=== PATIENT | male | born 1975 | race Caucasian/White ===

== ENCOUNTER 2022-03-23 10:48 | Emergency (ER) | payer MEDICAID, SELFPAY ==
--- NOTE | ~2022-03-23 | CT_ITS ---
EXAMINATION: CT ABDOMEN AND PELVIS WITHOUT CONTRAST CLINICAL INFORMATION: Patient complaining of diffuse abd pain with N/V x 10 days COMPARISON: Chest radiograph earlier today TECHNIQUE: Multidetector volumetric imaging was performed from the superior aspect of the liver through the pubic symphysis. Sagittal and coronal reformatted images were obtained on the technologist's workstation. This CT examination was performed using dose optimization techniques as appropriate, variously including the following: *Automated exposure control *Adjustment of mA and/or kV according to patient size (this includes techniques or standardized protocols for targeted exams where dose is matched to indication/reason for exam; i.e. extremities or head) *Use of iterative reconstruction technique DLP: 379 mGy-cm FINDINGS: LUNG BASES: The visualized lung bases are unremarkable. Small area of bronchiectasis present at the right lung base. LIVER, GALLBLADDER, AND BILIARY TREE: The liver is normal in size, shape, and attenuation. There is a water density 1.5 cm cyst in the right lobe of the liver (4:93). No worrisome solid focal hepatic lesion or biliary ductal dilatation is present. The gallbladder is unremarkable with no evidence of radiopaque gallstones, gallbladder wall thickening, or obvious pericholecystic inflammatory changes. PANCREAS: Unremarkable. SPLEEN: Unremarkable. ADRENAL GLANDS: Unremarkable. KIDNEYS AND URETERS: The kidneys are normal in size, shape, and attenuation. No hydronephrosis, hydroureter, or calculi seen. No perinephric stranding. BLADDER: Unremarkable. GASTROINTESTINAL TRACT: The small and large bowel are unremarkable. The appendix is short and minimally enlarged with some high density material in its lumen some mild inflammatory change in the periappendiceal fat. These findings may represent subtle early acute appendicitis. ABDOMINAL WALL: No significant hernia is appreciated. LYMPH NODES: No retroperitoneal lymphadenopathy. VASCULAR: Unremarkable. PELVIC VISCERA: The prostate and seminal vesicles are unremarkable. No free intraperitoneal fluid. OSSEOUS STRUCTURES: Unremarkable. No acute disease. There is some minimal anterior wedging of L2. CT/CT abdomen pelvis wo IV con IMPRESSION: The appendix is short and minimally dilated at 1 cm with some high density material in its lumen and mild inflammatory change in the periappendiceal fat. These findings may represent subtle early acute appendicitis. Attempts are being made to contact the referring physician with this Critical Result and when this has been done, an addendum will be issued. Fleischner guidelines were followed.
--- NOTE | ~2022-03-23 | XR_ITS ---
EXAMINATION: XR CHEST CLINICAL INFORMATION: Nausea and vomiting and abdominal pain. COMPARISON: None TECHNIQUE: 2 views of the chest were obtained. FINDINGS: The lungs are hyperinflated but clear of acute process. Heart size and pulmonary vascularity is normal. No gross bony abnormality seen. XR/XR chest 2V IMPRESSION: Hyperinflated lungs with no acute process seen.
[2022-03-23 10:56] VITALS: BP 171/87; PULSE 66; RESP 19; TEMP 36.6; O2SAT 100; BMI 23.3
--- NOTE | 2022-03-23 12:34 | ED_ITS ---
HPI - Nausea/Vomiting/Diarrhea General Chief complaint: Nausea/Vomiting/Diarrhea <RYAN Serrato Last Filed: 03/23/22 12:38> Stated complaint: not feeling well, vomiting, cant eat <RYAN Serrato Last Filed: 03/23/22 12:38> Time Seen by Provider: 03/23/22 13:40 <RYAN Serrato Last Filed: 03/23/22 12:38> Source: patient and family <RYAN Cash Last Filed: 03/23/22 16:50> Mode of arrival: ambulatory <RYAN Cash Last Filed: 03/23/22 16:50> Limitations: no limitations <RYAN Cash Last Filed: 03/23/22 16:50> History of Present Illness HPI Narrative: 46-year-old male presents to the ER for evaluation of nausea, vomiting and diffuse abdominal pain that started this morning. He states he has been unable to keep down any food or drink. He has had several episode of nonbloody vomiting. Last BM was yesterday, was normal. No diarrhea. He denies any fevers but reports chills and body aches. He states several members of his family have similar symptoms and have the GI bug. He feels weak and dehydrated. He reports his abdominal pain is diffuse, intermittent and comes and goes. It is cramping in nature. <RYAN Cash Last Filed: 03/23/22 16:50> MD elicited complaint: nausea, vomiting and abdominal pain <RYAN Cash Last Filed: 03/23/22 16:50> Onset (ago): hour(s) (10) <RYAN Cash Last Filed: 03/23/22 16:50> Description of vomiting: food contents <RYAN Cash Last Filed: 03/23/22 16:50> Associated nausea: Yes <RYAN Cash Last Filed: 03/23/22 16:50> Associated abdominal pain: Yes <RYAN Cash Last Filed: 03/23/22 16:50> Location of pain: diffuse <RYAN Cash Last Filed: 03/23/22 16:50> Radiation: diffuse <RYAN Cash - Last Filed: 03/23/22 16:50> Pain consistency: intermittent <RYAN Cash Last Filed: 03/23/22 16:50> Severity: moderate <RYAN Cash - Last Filed: 03/23/22 16:50> Quality: cramping <RYAN Cash - Last Filed: 03/23/22 16:50> Exacerbating factors: eating <RYAN Cash - Last Filed: 03/23/22 16:50> Relieving factors: none <RYAN Cash - Last Filed: 03/23/22 16:50> Associated symptoms: myalgias, cough, fever/chills, headaches, loss of appetite, malaise, nausea/vomiting and fatigue <RYAN Cash Last Filed: 03/23/22 16:50> Related Data Home medications: Previous Rx's Medication Instructions Recorded ondansetron 4 mg disintegrating 4 mg PO Q8H PRN nausea and 03/23/22 tablet vomiting #10 tabs <RYAN Serrato - Last Filed: 03/23/22 12:38> Allergies/Adverse reactions: Allergies Allergy/AdvReac Type Severity Reaction Status Date / Time No Known Allergies Allergy Unverified 01/01/22 14:17 <RYAN Serrato Last Filed: 03/23/22 12:38> Review of Systems Review of Systems: Yes all other systems are reviewed and are negative <RYAN Cash Last Filed: 03/23/22 16:50> Gastrointestinal: Gastrointestinal: Reports nausea <RYAN Cash Last Filed: 03/23/22 16:50> [facility] Past Medical History Surgical History: Surgical History (Updated 01/03/22 @ 12:03 by Joe Aguayo RN) History of carpal tunnel surgery of left wrist <RYAN Serrato Last Filed: 03/23/22 12:38> Social History Social History: Social History Advance Directives: No Advance Directives Information Provided: No <RYAN Serrato Last Filed: 03/23/22 12:38> Physical Exam Vital Signs: Vital Signs: Last Vital Signs Temp 97.7 F 03/23/22 12:36 Pulse 56 03/23/22 14:04 Resp 16 03/23/22 14:04 BP 154/72 H 03/23/22 14:04 Pulse Ox 99 03/23/22 14:04 O2 Del Method 03/23/22 14:04 BMI result Body Mass Index 23.3 <RYAN Serrato - Last Filed: 03/23/22 12:38> Vital Signs: Last Vital Signs Temp 97.7 F 03/23/22 12:36 Pulse 56 03/23/22 14:04 Resp 16 03/23/22 14:04 BP 154/72 H 03/23/22 14:04 Pulse Ox 99 03/23/22 14:04 O2 Del Method 03/23/22 14:04 BMI result Body Mass Index 23.3 <RYAN Cash - Last Filed: 03/23/22 16:50> Appearance: Alert. Oriented X3. No acute distress. Eyes: Pupils equal, round and reactive to light. ENT: Pharynx normal. Moist mucus membranes Neck: Normal inspection. Neck supple. CVS: Normal heart rate and rhythm. Pulses normal. Respiratory: No respiratory distress. Breath sounds normal. Abdomen: Soft and nontender. +BS x4 Skin: Skin warm and dry. Normal skin color. Normal skin turgor. No rashes. Extremities: No lower extremity edema. Neuro: Oriented X 3. No motor deficit. No sensory deficit. <RYAN Cash - Last Filed: 03/23/22 16:50> Course Course Course Narrative: RME-12:35PM 46yoM presenting to the ED c c/o 10 hours of nausea/vomiting and diffuse abdominal pain. Reports he is unable to keep anything down. He reports family at home has similar stomach bug. Denies recent travel. Denies any possible bad food exposure. Also reports some nasal congestion and upper respiratory symptoms. Plan: Will obtain labs, EKG, chest x-ray, CT scan abdomen pelvis without IV contrast. Patient will be sent back to the waiting room to be evaluated in the ED. <RYAN Serrato - Last Filed: 03/23/22 12:38> Reevaluation(s) Reevaluation #1: Labs unremarkable. IVF and Zofran ordered. <RYAN Csah - Last Filed: 03/23/22 16:50> Reevaluation #2: Tolerating PO but reports nausea. No further vomiting. Spoke with Radiologist about CT scan read. There was some subtle thickening of the appendix and minimally dilated with mild inflammatory changes, could be subtle, early appendicitis, however the patient does not have localized right lower quadrant tenderness, no fevers, no leukocytosis. Radiologist does not think this is true pending situs. Results were discussed with the patient and his . Given he is tolerating p.o., has no localized right lower quadrant tenderness and has no leukocytosis doubt acute appendicitis at this time. Patient will be discharged with p.r.n. Zofran. He will monitor his pain at home, if he develops acute onset of right lower quadrant pain or any worsening symptoms he will come back to the ER right away. Patient expressed understanding and all questions were answered. Stable for discharge home. <RYAN Cash - Last Filed: 03/23/22 16:50> Medications Administered Discontinued Medications Generic Name Dose Route Start Last Admin Trade Name Freq PRN Reason Stop Dose Admin Sodium Chloride 1,000 mls @ 999 mls/hr 03/23/22 14:30 03/23/22 16:08 Ns IVCONT 03/23/22 15:30 Infused .Q1H1M JANY Infusion Metoclopramide HCl 10 mg 03/23/22 15:57 03/23/22 16:08 Metoclopramide Hcl 10 Mg/2 Ml Vial IVPUSH 03/23/22 15:58 10 mg ONCE ONE Administration Ondansetron HCl 4 mg 03/23/22 14:23 03/23/22 14:41 Ondansetron Hcl 4 Mg/2 Ml Vial IVPUSH 03/23/22 14:24 4 mg ONCE ONE Administration <RYAN Serrato - Last Filed: 03/23/22 12:38> Medications Administered Discontinued Medications Generic Name Dose Route Start Last Admin Trade Name Freq PRN Reason Stop Dose Admin Sodium Chloride 1,000 mls @ 999 mls/hr 03/23/22 14:30 03/23/22 16:08 Ns IVCONT 03/23/22 15:30 Infused .Q1H1M JANY Infusion Metoclopramide HCl 10 mg 03/23/22 15:57 03/23/22 16:08 Metoclopramide Hcl 10 Mg/2 Ml Vial IVPUSH 03/23/22 15:58 10 mg ONCE ONE Administration Ondansetron HCl 4 mg 03/23/22 14:23 03/23/22 14:41 Ondansetron Hcl 4 Mg/2 Ml Vial IVPUSH 03/23/22 14:24 4 mg ONCE ONE Administration <RYAN Cash - Last Filed: 03/23/22 16:50> Medical Decision Making Differential Diagnosis Differential Diagnoses: The differential diagnosis associated with the presentation includes <RYAN Cash - Last Filed: 03/23/22 16:50> gastroenteritis, viral process, bacterial gastroenteritis, less likely diverticulitis, bowel obstruction, volvulus, appendicitis, cholecystitis, pyelonephritis, UTI <RYAN Cash - Last Filed: 03/23/22 16:50> Lab Data MDM Lab Attestation statement: I reviewed the patient's lab results. <RYAN Cash - Last Filed: 03/23/22 16:50> Result Diagrams: 03/23/22 12:48 03/23/22 12:48 <RYAN Serrato - Last Filed: 03/23/22 12:38> Labs: Lab Results 03/23/22 03/23/22 03/23/22 Range/Units 12:48 12:48 12:48 WBC 6.7 (4.8-10.8) X10*3/uL RBC 5.24 (4.60-5.80) X10*6/uL Hgb 15.1 (14.0-18.0) g/dl Hct 43.0 (42.0-52.0) % MCV 82.1 (80.0-98.0) fL MCH 28.8 (27.0-33.0) pg MCHC 35.1 (31.0-36.0) g/dl RDW 13.1 (11.0-16.0) % Plt Count 210 (160-400) X10*3/uL MPV 10.1 (9.4-12.4) fL Immature Gran % (Auto) 0.3 (0.0-0.4) % Neut % (Auto) 90.1 H (45-73) % Lymph % (Auto) 7.5 L (20-40) % [place] % (Auto) 2.1 (2-11) % Eos % (Auto) 0.0 (0-4) % Baso % (Auto) 0.0 (0-2) % Lymph # (Auto) 0.5 L (1.2-4.9) X10*3/uL [place] # (Auto) 0.1 (0.1-1.2) X10*3/uL Eos # (Auto) 0.0 (0.0-0.4) X10*3/uL Baso # (Auto) 0.0 (0.0-0.2) X10*3/uL Abs Immat Gran (auto) 0.02 (0.00-0.03) X10*3/uL Absolute Neuts (auto) 6.0 (2.0-8.3) x10*3/uL Absolute Nucleated RBC 0.000 (0.0-0.012) X10*3/uL Nucleated RBC % (auto) 0.0 (0.0-0.2) /100WBC Smear Tech's Comments VERIFIED PT 12.3 (10.0-13.1) SEC INR 1.1 (0.9-1.1) Sodium 142 (135-145) mmol/L Potassium 3.9 (3.3-5.1) mmol/L Chloride 106 (96-108) mmol/L Carbon Dioxide 23 (22-29) mmol/L Anion Gap 17 (12-20) BUN 19 H (9-16) mg/dL Creatinine 1.03 (0.5-1.4) mg/dL Estim Creat Clear Calc 80.0 Estimated GFR > 60 Random Glucose 136 H (60-115) mg/dL Calcium 10.3 H (8.4-10.2) mg/dL Magnesium 1.7 (1.6-2.6) mg/dL Total Bilirubin 1.0 (0.0-1.0) mg/dL AST 26 (5-37) U/L ALT 19 (0-40) U/L Alkaline Phosphatase 104 (39-117) U/L Total Protein 8.5 H (6.5-8.0) g/dL Albumin 5.0 (3.5-5.0) g/dL Ethyl Alcohol mg/dL Influenza Type A (PCR) (Negative) Influenza Type B (PCR) (Negative) RSV RNA Qual (PCR) (Negative) SARS-CoV-2 RNA (RT-PCR) (Negative) 03/23/22 03/23/22 Range/Units 12:48 12:48 WBC (4.8-10.8) X10*3/uL RBC (4.60-5.80) X10*6/uL Hgb (14.0-18.0) g/dl Hct (42.0-52.0) % MCV (80.0-98.0) fL MCH (27.0-33.0) pg MCHC (31.0-36.0) g/dl RDW (11.0-16.0) % Plt Count (160-400) X10*3/uL MPV (9.4-12.4) fL Immature Gran % (Auto) (0.0-0.4) % Neut % (Auto) (45-73) % Lymph % (Auto) (20-40) % [place] % (Auto) (2-11) % Eos % (Auto) (0-4) % Baso % (Auto) (0-2) % Lymph # (Auto) (1.2-4.9) X10*3/uL [place] # (Auto) (0.1-1.2) X10*3/uL Eos # (Auto) (0.0-0.4) X10*3/uL Baso # (Auto) (0.0-0.2) X10*3/uL Abs Immat Gran (auto) (0.00-0.03) X10*3/uL Absolute Neuts (auto) (2.0-8.3) x10*3/uL Absolute Nucleated RBC (0.0-0.012) X10*3/uL Nucleated RBC % (auto) (0.0-0.2) /100WBC Smear Tech's Comments PT (10.0-13.1) SEC INR (0.9-1.1) Sodium (135-145) mmol/L Potassium (3.3-5.1) mmol/L Chloride (96-108) mmol/L Carbon Dioxide (22-29) mmol/L Anion Gap (12-20) BUN (9-16) mg/dL Creatinine (0.5-1.4) mg/dL Estim Creat Clear Calc Estimated GFR Random Glucose (60-115) mg/dL Calcium (8.4-10.2) mg/dL Magnesium (1.6-2.6) mg/dL Total Bilirubin (0.0-1.0) mg/dL AST (5-37) U/L ALT (0-40) U/L Alkaline Phosphatase (39-117) U/L Total Protein (6.5-8.0) g/dL Albumin (3.5-5.0) g/dL Ethyl Alcohol < 10 mg/dL Influenza Type A (PCR) NEGATIVE (Negative) Influenza Type B (PCR) NEGATIVE (Negative) RSV RNA Qual (PCR) NEGATIVE (Negative) SARS-CoV-2 RNA (RT-PCR) NEGATIVE (Negative) <RYAN Serrato - Last Filed: 03/23/22 12:38> Lab Results 03/23/22 03/23/22 03/23/22 Range/Units 12:48 12:48 12:48 WBC 6.7 (4.8-10.8) X10*3/uL RBC 5.24 (4.60-5.80) X10*6/uL Hgb 15.1 (14.0-18.0) g/dl Hct 43.0 (42.0-52.0) % MCV 82.1 (80.0-98.0) fL MCH 28.8 (27.0-33.0) pg MCHC 35.1 (31.0-36.0) g/dl RDW 13.1 (11.0-16.0) % Plt Count 210 (160-400) X10*3/uL MPV 10.1 (9.4-12.4) fL Immature Gran % (Auto) 0.3 (0.0-0.4) % Neut % (Auto) 90.1 H (45-73) % Lymph % (Auto) 7.5 L (20-40) % [place] % (Auto) 2.1 (2-11) % Eos % (Auto) 0.0 (0-4) % Baso % (Auto) 0.0 (0-2) % Lymph # (Auto) 0.5 L (1.2-4.9) X10*3/uL [place] # (Auto) 0.1 (0.1-1.2) X10*3/uL Eos # (Auto) 0.0 (0.0-0.4) X10*3/uL Baso # (Auto) 0.0 (0.0-0.2) X10*3/uL Abs Immat Gran (auto) 0.02 (0.00-0.03) X10*3/uL Absolute Neuts (auto) 6.0 (2.0-8.3) x10*3/uL Absolute Nucleated RBC 0.000 (0.0-0.012) X10*3/uL Nucleated RBC % (auto) 0.0 (0.0-0.2) /100WBC Smear Tech's Comments VERIFIED PT 12.3 (10.0-13.1) SEC INR 1.1 (0.9-1.1) Sodium 142 (135-145) mmol/L Potassium 3.9 (3.3-5.1) mmol/L Chloride 106 (96-108) mmol/L Carbon Dioxide 23 (22-29) mmol/L Anion Gap 17 (12-20) BUN 19 H (9-16) mg/dL Creatinine 1.03 (0.5-1.4) mg/dL Estim Creat Clear Calc 80.0 Estimated GFR > 60 Random Glucose 136 H (60-115) mg/dL Calcium 10.3 H (8.4-10.2) mg/dL Magnesium 1.7 (1.6-2.6) mg/dL Total Bilirubin 1.0 (0.0-1.0) mg/dL AST 26 (5-37) U/L ALT 19 (0-40) U/L Alkaline Phosphatase 104 (39-117) U/L Total Protein 8.5 H (6.5-8.0) g/dL Albumin 5.0 (3.5-5.0) g/dL Ethyl Alcohol mg/dL Influenza Type A (PCR) (Negative) Influenza Type B (PCR) (Negative) RSV RNA Qual (PCR) (Negative) SARS-CoV-2 RNA (RT-PCR) (Negative) 03/23/22 03/23/22 Range/Units 12:48 12:48 WBC (4.8-10.8) X10*3/uL RBC (4.60-5.80) X10*6/uL Hgb (14.0-18.0) g/dl Hct (42.0-52.0) % MCV (80.0-98.0) fL MCH (27.0-33.0) pg MCHC (31.0-36.0) g/dl RDW (11.0-16.0) % Plt Count (160-400) X10*3/uL MPV (9.4-12.4) fL Immature Gran % (Auto) (0.0-0.4) % Neut % (Auto) (45-73) % Lymph % (Auto) (20-40) % [place] % (Auto) (2-11) % Eos % (Auto) (0-4) % Baso % (Auto) (0-2) % Lymph # (Auto) (1.2-4.9) X10*3/uL [place] # (Auto) (0.1-1.2) X10*3/uL Eos # (Auto) (0.0-0.4) X10*3/uL Baso # (Auto) (0.0-0.2) X10*3/uL Abs Immat Gran (auto) (0.00-0.03) X10*3/uL Absolute Neuts (auto) (2.0-8.3) x10*3/uL Absolute Nucleated RBC (0.0-0.012) X10*3/uL Nucleated RBC % (auto) (0.0-0.2) /100WBC Smear Tech's Comments PT (10.0-13.1) SEC INR (0.9-1.1) Sodium (135-145) mmol/L Potassium (3.3-5.1) mmol/L Chloride (96-108) mmol/L Carbon Dioxide (22-29) mmol/L Anion Gap (12-20) BUN (9-16) mg/dL Creatinine (0.5-1.4) mg/dL Estim Creat Clear Calc Estimated GFR Random Glucose (60-115) mg/dL Calcium (8.4-10.2) mg/dL Magnesium (1.6-2.6) mg/dL Total Bilirubin (0.0-1.0) mg/dL AST (5-37) U/L ALT (0-40) U/L Alkaline Phosphatase (39-117) U/L Total Protein (6.5-8.0) g/dL Albumin (3.5-5.0) g/dL Ethyl Alcohol < 10 mg/dL Influenza Type A (PCR) NEGATIVE (Negative) Influenza Type B (PCR) NEGATIVE (Negative) RSV RNA Qual (PCR) NEGATIVE (Negative) SARS-CoV-2 RNA (RT-PCR) NEGATIVE (Negative) <RYAN Cash - Last Filed: 03/23/22 16:50> Independent Interpretation I performed an independent interpretation of an: Plain X-Ray and CT Scan <RYAN Cash - Last Filed: 03/23/22 16:50> Interpretation: CXR - no pneumonia, no PTX CT - no significant abnormality <RYAN Cash - Last Filed: 03/23/22 16:50> Radiology Impression Discussion of test interpretation with radiology: I discussed test interpretation with the radiologist and I have reviewed the radiologist's reading. <RYAN Cash - Last Filed: 03/23/22 16:50> Radiologist Impression: CT ABD: After review of the images as well as a discussion with Carisa DAVIS it is apparent that findings probably don't represent acute appendicitis. However, if the patient's symptoms should worsen and persist, a repeat study with oral and IV contrast is recommended. These results were discussed with Carisa DAVIS at 3:15 PM on the day the exam and it was ascertained that the content of the report was understood at the time of direct communication. CXR- Hyperinflated lungs with no acute process seen. <RYAN Cash - Last Filed: 03/23/22 16:50> Prescription Management I considered prescription management with: Pain Medication and Antibiotic <RYAN Cash Last Filed: 03/23/22 16:50> Critical Care Time Critical Care Time Critical Care Time: No <RYAN Cash Last Filed: 03/23/22 16:50> Discharge Plan Discharge Clinical Impression: Gastroenteritis <RAYN Serrato Last Filed: 03/23/22 12:38> Patient Disposition: Home, Self-Care <RYAN Serrato - Last Filed: 03/23/22 12:38> Instructions: Gastroenteritis (ED) <RYAN Serrato - Last Filed: 03/23/22 12:38> Additional Instructions: You lab workup today was unremarkable. You most likely have a viral GI bug also known as gastroenteritis. Treatment is supportive care, symptoms usually resolve on their own in 48-72 scott rs. Recommend rest and plenty of oral hydration. Stick to a bland diet like soup and toast while you are not feeling well. Take the prescribed medication as needed for nausea. Recommend over the counter Pepto Bismol or Imodium for upset stomach and diarrhea. Follow up with your doctor as needed. If you develop new or worsening symptoms, especially pain in the right lower abdomen call 911 or come back to the ER for further evaluation. <RYAN Serrato - Last Filed: 03/23/22 12:38> Prescriptions: New ondansetron 4 mg tablet,disintegrating 4 mg PO Q8H PRN (Reason: nausea and vomiting) Qty: 10 0RF <RYAN Serrato - Last Filed: 03/23/22 12:38>
[2022-03-23 12:36] VITALS: BP 169/90; PULSE 59; RESP 18; TEMP 36.5; O2SAT 100
--- NOTE | 2022-03-23 12:36 | ECG_ITS ---
Test Reason : CHEST PAIN Blood Pressure : / mmHG Vent. Rate : 058 BPM Atrial Rate : 058 BPM P-R Int : 140 ms QRS Dur : 098 ms QT Int : 422 ms P-R-T Axes : 071 092 063 degrees QTc Int : 414 ms Sinus bradycardia with sinus arrhythmia Rightward axis Borderline ECG No previous ECGs available Referred By: Joselyn Rosas Electronically Signed By:MULU WALKER MD
[2022-03-23 12:56] LABS: Hemoglobin 15.1 g/dl (14.0-18.0); Imm Gran Abs Auto 0.02 X10*3/uL (0.00-0.03); Imm Gran Pct Auto 0.3 % (0.0-0.4); Lymphocytes Absolute Auto 0.5 X10*3/uL (1.2-4.9); Lymphocytes Percent Auto 7.5 % (20-40); MANUAL DIFF FLAG SCAN; Mean Corpuscular HGB Conc 35.1 g/dl (31.0-36.0); Mean Corpuscular Hemoglobin 28.8 pg (27.0-33.0); Mean Corpuscular Volume 82.1 fL (80.0-98.0); Mean Platelet Volume 10.1 fL (9.4-12.4); Monocytes Absolute Auto 0.1 X10*3/uL (0.1-1.2); Monocytes Percent Auto 2.1 % (2-11); Neutrophils Percent Auto 90.1 % (45-73); Platelet Count 210 X10*3/uL (160-400); Red Blood Count 5.24 X10*6/uL (4.60-5.80); Red Cell Distribution Width 13.1 % (11.0-16.0); SCAN SMEAR FLAG 1; White Blood Count 6.7 X10*3/uL (4.8-10.8)
[2022-03-23 13:05] LABS: INTERNATIONAL NORM RATIO 1.1 (0.9-1.1); Prothrombin Time 12.3 SEC (10.0-13.1)
[2022-03-23 13:06] LABS: Ethanol < 10 mg/dL
[2022-03-23 13:08] LABS: Alanine Aminotransferase 19 U/L (0-40); Alkaline Phosphatase 104 U/L (39-117); Anion Gap 17 (12-20); Aspartate Amino Transferase 26 U/L (5-37); Blood Urea Nitrogen 19 mg/dL (9-16); Calcium 10.3 mg/dL (8.4-10.2); Carbon Dioxide 23 mmol/L (22-29); Chloride 106 mmol/L (96-108); Estimated Glomerular Filt Rate > 60; Glucose Random 136 mg/dL (60-115); Magnesium 1.7 mg/dL (1.6-2.6); Potassium 3.9 mmol/L (3.3-5.1); Sodium 142 mmol/L (135-145); Total Protein 8.5 g/dL (6.5-8.0)
[2022-03-23 13:23] LABS: SLIDE REVIEW VERIFIED
[2022-03-23 13:31] LABS: Influenza A PCR NEGATIVE (Negative); Influenza B PCR NEGATIVE (Negative); Resp Syncy Virus RNA Qual PCR NEGATIVE (Negative); SARS COV2 PCR INHOUSE NEGATIVE (Negative)
[2022-03-23 14:04] VITALS: BP 154/72; PULSE 56; RESP 16; O2SAT 99
[2022-03-23] MEDS: ondansetron HCL 4 MG/2 ML VIAL IVPUSH (14:41)
[2022-03-23] MEDS: 0.9 % Sodium Chloride 1,000 ML 999 ML IVCONT (14:41)
[2022-03-23] MEDS: Metoclopramide HCl 10 MG/2 ML VIAL IVPUSH (16:08)
== END 2022-03-23 17:17 | disposition home or self-care (01) ==
PROVIDERS: Physician Assistant Medical; Emergency Provider Emergency Medicine Emergency Medical Services; PCP Internal Medicine
DX: R11.2 Nausea with vomiting, unspecified (principal); R19.7 Diarrhea, unspecified; R10.9 Unspecified abdominal pain; R50.9 Fever, unspecified; Z20.822 Contact with and (suspected) exposure to COVID-19; Z20.828 Contact with and (suspected) exposure to other viral communicable diseases; Z79.899 Other long term (current) drug therapy
CPT/HCPCS: 0241U; 36415; 71046; 74176; 80053; 82077; 83735; 85025; 85610; 93005; 96361; 96374; 96375; 99284; J2405; J2765